=== PATIENT | male | born 1945 | race Two or more races ===

== ENCOUNTER 2018-01-22 23:57 | Inpatient (IN) | payer OTHER ==
[~2018-01-22] VITALS: Ht 162.6 cm; Wt 109.8 kg
[~2018-01-22 23:57] MED LIST: HUMULIN 70/30 V10 ML; LANTUS100 U/ML
[2018-01-23] MEDS ORDERED: VASOTEC20 M1 (00:18)
[2018-01-23] MEDS ORDERED: ATORVASTATIN CA40 MG (00:18)
== END 2018-01-27 15:28 | disposition home or self-care (01) | DRG 392 ==
LOC: ER 23:57 → SEC-K 01-23 08:59 → SURH 01-23 14:48
PROC: BW28ZZZ Computerized Tomography (CT Scan) of Head (ICD-10-PCS; principal; 2018-01-23)
PROC: 8E0ZXY6 Isolation (ICD-10-PCS; 2018-01-23)
DX: A09 Infectious gastroenteritis and colitis, unspecified (principal); E86.0 Dehydration; R41.82 Altered mental status, unspecified